=== PATIENT | male | born 1985 | race Two or more races ===

== ENCOUNTER 2017-05-11 23:19 | Emergency (ER) | payer SELFPAY ==
[~2017-05-11] VITALS: Ht 190.5 cm; Wt 104.3 kg
--- NOTE | 2017-05-11 23:40 | NUR ---
PT BIB FAMILY. PT NOTED AGITATED, TELLING AND USING AGGRESSIVE LANGUAGE "BITCH" ADMITS TO SMOKING MARIJUANA. PT AOX3 RR EVEN AND UNLABORED. NO SOB NOTED. NAD NOTED. NO NVD AT THIS TIME. PT PLACED ON MONITOR WAITING FOR MD ROBERTO. PT DENIES HI/SI
[2017-05-11] MEDS ORDERED: LORAZEPAM 1 MG TABLET ONE (23:54)
--- NOTE | 2017-05-11 23:56 | NUR ---
LAB AT BEDSIDE FOR BLOOD DRAW.
[2017-05-12] MEDS ORDERED: LORAZEPAM 1 MG TABLET PO ONE
[2017-05-12 00:17] LABS: BASOPHILS # (AUTO) 0.1 /CMM (0.0-0.2); BASOPHILS % (AUTO) 0.5 % (0.0-2.0); EOSINOPHILS # (AUTO) 0.2 /CMM (0.0-0.7); EOSINOPHILS % (AUTO) 1.4 % (0.0-6.0); HEMATOCRIT 47 % (39-51); HEMOGLOBIN 15.5 g/dL (13.5-17.5); LYMPHOCYTES # (AUTO) 4.6 /CMM (0.8-4.8); LYMPHOCYTES % (AUTO) 37.5 % (20.0-44.0); MEAN CORPUSCULAR HEMOGLOBIN 27 PG (26.0-33.0); MEAN CORPUSCULAR HGB CONC 33 g/dl (31.0-36.0); MEAN CORPUSCULAR VOLUME 81 fL (80-96); MONOCYTES # (AUTO) 1.1 /CMM (0.1-1.30); MONOCYTES % (AUTO) 8.9 % (2.0-12.0); NEUTROPHILS # (AUTO) 6.3 /CMM (1.8-8.9); NEUTROPHILS % (AUTO) 51.7 % (43.0-81.0); PLATELET COUNT (AUTO) 368 /CMM (150-450); RDW COEFFICIENT OF VARIATION 14.3 (11.5-15.0); RED BLOOD CELL COUNT(AUTO) 5.74 MIL/uL (4.5-6.0); WHITE BLOOD COUNT (AUTO) 12.1 K/uL (4.3-11.0)
[2017-05-12 00:26] LABS: ALANINE AMINOTRANSFERASE 42 U/L (12-78); ALBUMIN 4.2 g/dL (3.4-5.0); ALCOHOL, BLOOD < 3 mg/dL (0-0); ALKALINE PHOSPHATASE 88 U/L (46-116); ASPARTATE AMINOTRANSFERASE 18 U/L (15-37); BILIRUBIN,DIRECT 0.1 mg/dL (0.0-0.2); BILIRUBIN,TOTAL 0.3 mg/dL (0.2-1.0); CALCIUM, SERUM 9.1 mg/dL (8.5-10.1); CARBON DIOXIDE 24 mmol/L (21-32); CHLORIDE 104 mmol/L (98-107); CREATININE 1.4 mg/dL (0.6-1.3); GLUCOSE 119 mg/dL (74-106); POTASSIUM 3.2 mmol/L (3.5-5.1); SALICYLATE 3.3 mg/dL (2.8-20.0); SODIUM SERUM 141 mmol/L (136-145); UREA NITROGEN, BLOOD 13 mg/dL (7-18)
[2017-05-12 00:27] LABS: ACETAMINOPHEN 0 ug/ml (10-30)
--- NOTE | 2017-05-12 00:47 | NUR ---
PT REFUSED TO PROVIDE URINE. AND CHICHO EXPLAINED X3. PT STRONGLY REFUSED. PT STATES " I DO NOT WANT TO PROVIDE URINE, I HAVE EVERY RIGHT TO REFUSE" DR. PEREZ AWARE.
--- NOTE | 2017-05-12 00:48 | NUR ---
PT REFUSED TO BE SEEN BY MD AFTER ADMITTING REQUEST TO SIGN PAPER WORK. PT AWOL. DR. PEREZ MADE AWARE.
[2017-05-12 00:51] VITALS: BP 168/86
== END 2017-05-12 00:48 | disposition left against medical advice (07) ==
LOC: ER 23:23
DX: F91.1 Conduct disorder, childhood-onset type (principal); F32.9 Major depressive disorder, single episode, unspecified
CPT/HCPCS: 36415; 80048-TC; 80076-TC; 85025-TC; A4606; G0480; Z7610

== ENCOUNTER 2019-01-02 19:11 | Emergency (ER) | payer OTHER ==
[~2019-01-02] VITALS: Ht 188 cm; Wt 102.1 kg
[2019-01-02 19:52] LABS: BASOPHILS # (AUTO) 0.1 /CMM (0.0-0.2); BASOPHILS % (AUTO) 0.7 % (0.0-2.0); EOSINOPHILS % (AUTO) 1.3 % (0.0-6.0); HEMATOCRIT 45 % (39-51); HEMOGLOBIN 15.1 g/dL (13.5-17.5); LYMPHOCYTES # (AUTO) 4.2 /CMM (0.8-4.8); LYMPHOCYTES % (AUTO) 41.5 % (20.0-44.0); MEAN CORPUSCULAR HGB CONC 34 g/dl (31.0-36.0); MEAN CORPUSCULAR VOLUME 83 fL (80-96); MONOCYTES # (AUTO) 0.8 /CMM (0.1-1.30); MONOCYTES % (AUTO) 8.2 % (2.0-12.0); NEUTROPHILS # (AUTO) 4.9 /CMM (1.8-8.9); NEUTROPHILS % (AUTO) 48.3 % (43.0-81.0); PLATELET COUNT (AUTO) 306 /CMM (150-450); RED BLOOD CELL COUNT(AUTO) 5.43 MIL/uL (4.5-6.0); WHITE BLOOD COUNT (AUTO) 10.1 K/uL (4.3-11.0)
[2019-01-02] MEDS: IV NS 0.9% 1,000 ML BAG IV ONE (19:54)
--- NOTE | 2019-01-02 19:58 | NUR ---
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 NON RADIATING, DESCRIBED "TINGLING". +NAUSEA, -SOB, -HEADACHE,-DIZZINESS. PT AAOX4, DENIES SOB, DIZZINESS, WEAKNESS. PT SEEN & EVAL'D BY JESSI GIBBS. PLACED ON FUR NAILER. PT TOLD JESSI GIBBS THAT HE INGESTED 4800 MG OF GABAPENTIN & 100G OF EDIBLE CANNABOIDS WHEN MOM STEPPED OUT OF ROOM. -SI/HI. WILL CONT TO MONITOR.
[2019-01-02 19:59] LABS: CALCIUM, SERUM 9.2 mg/dL (8.5-10.1); CARBON DIOXIDE 28 mmol/L (21-32); CHLORIDE 103 mmol/L (98-107); CREATININE 1.2 mg/dL (0.6-1.3); GLUCOSE 94 mg/dL (74-106); POTASSIUM 3.5 mmol/L (3.5-5.1); SODIUM SERUM 138 mmol/L (136-145); UREA NITROGEN, BLOOD 14 mg/dL (7-18)
[2019-01-02 20:05] LABS: ALANINE AMINOTRANSFERASE 64 U/L (12-78); ALBUMIN 3.9 g/dL (3.4-5.0); ALKALINE PHOSPHATASE 73 U/L (46-116); ASPARTATE AMINOTRANSFERASE 43 U/L (15-37); BILIRUBIN,DIRECT 0.1 mg/dL (0.0-0.2); BILIRUBIN,TOTAL 0.2 mg/dL (0.2-1.0); TOTAL PROTEIN, SERUM 7.4 g/dL (6.4-8.2)
[2019-01-02 20:08] LABS: ACETAMINOPHEN < 2 ug/ml (10-30); SALICYLATE < 2.8 mg/dL (2.8-20.0)
[2019-01-02 20:20] LABS: ALCOHOL, BLOOD < 3 mg/dL (0-0)
--- NOTE | 2019-01-02 21:16 | NUR ---
PT ASLEEP, EASILY AWAKEN BY VERBAL STIMULI. DENIES CP, PALPITATION, SOB, DIZZINESS, N/V, WEAKNESS @ THIS TIME. WILL CONT TO MONITOR.
--- NOTE | 2019-01-02 22:59 | NUR ---
ASSUMED CARE OF PT. REPORT REC'D FROM CRISTÓBAL SALDIVAR FOR PIETRO.
--- NOTE | 2019-01-02 22:59 | NUR ---
PT APPEARS TO BE RESTING COMFORTABLY WITH NO S/S OF PAIN OR DISTRESS. VSS
--- NOTE | 2019-01-02 23:01 | NUR ---
PT CALLED HIS MOTHER TO PICK HIM UP.
[2019-01-02 23:20] VITALS: BP 113/61
--- NOTE | 2019-01-02 23:20 | NUR ---
IV removed. Catheter intact and site benign. Pressure and 4x4 applied to site. No bleeding noted. Patient discharged to home in stable condition. Written and verbal after care instructions given. Patient verbalizes understanding of instruction. PT'S MOTHER IS DRIVING PT HOME.
== END 2019-01-02 23:20 | disposition home or self-care (01) ==
LOC: ER 19:14
DX: T40.7X1A Poisoning by cannabis (derivatives), accidental (unintentional), initial encounter (principal); T42.6X1A Poisoning by other antiepileptic and sedative-hypnotic drugs, accidental (unintentional), initial encounter; F41.9 Anxiety disorder, unspecified; F32.9 Major depressive disorder, single episode, unspecified; F17.200 Nicotine dependence, unspecified, uncomplicated; R41.82 Altered mental status, unspecified; Y92.89 Other specified places as the place of occurrence of the external cause
CPT/HCPCS: 36415; 71045; 80048; 80076; 80305; 80307; 80329; 84484; 85025; 93005; 96360; 99284; 99406; G0480; J7030